=== PATIENT | female | born 1990 | race Caucasian/White ===

== ENCOUNTER 2018-06-02 10:06 | Inpatient (IN) | payer MEDICAID ==
[~2018-06-02 10:06] MED LIST: EPHEDrine SULFATE 50 MG/5 ML SYG
[2018-06-02] MEDS ORDERED: MISOPROSTOL 200 MCG TAB PR ×2 (10:30→18:30)
[2018-06-02] MEDS ORDERED: METHYLERGONOVINE 0.2 MG INJ IM ×2 (10:30→18:30)
[2018-06-02] MEDS ORDERED: CARBOPROST 250 MCG INJ IM ×2 (10:30→18:30)
[2018-06-02] MEDS ORDERED: CEFAZOLIN 2 GM/50 ML (PMX) 50 ML IVPB (10:30)
[2018-06-02] MEDS ORDERED: OXYTOCIN 30 UNITS/LR 500 ML IV ×3 (10:30→18:30)
[2018-06-02] MEDS: LACTATED RINGER'S 1,000 ML IV (11:12)
[2018-06-02 11:21] LABS: ADD MAN DIFF? NO
[2018-06-02 11:24] LABS: WHITE BLOOD COUNT 6.3 10^3/ul (4.8-10.8)
[2018-06-02 11:24] LABS: BASOPHILS % 0.5 % (0.0-2.0); EOSINOPHILS # 0.1 10^3/ul (0.0-0.5); EOSINOPHILS % 1.8 % (0.0-7.0); HEMATOCRIT 31.9 % (37.0-47.0); HEMOGLOBIN 9.9 g/dl (12.0-16.0); LYMPHOCYTES # 1.5 10^3/ul (0.8-2.9); LYMPHOCYTES % 23.5 % (15.0-51.0); MEAN CORPUSCULAR HEMOGLOBIN 23.5 pg (29.0-33.0); MEAN CORPUSCULAR VOLUME 75.8 fl (82.0-101.0); MEAN PLATELET VOLUME 10.5 fl (7.4-10.4); MONOCYTE # 0.4 10^3/ul (0.3-0.9); NEUTROPHIL # 4.2 10^3/ul (1.6-7.5); NEUTROPHILS % 66.7 % (39.0-77.0); PLATELET COUNT 248 10^3/UL (140-415); RED BLOOD COUNT 4.21 10^6/ul (4.20-5.40); RED CELL DISTRIBUTION WIDTH 16.1 % (11.5-14.5)
[2018-06-02 11:43] LABS: INR 0.91; PROTIME 12.4 Sec (11.9-14.9)
[2018-06-02 11:44] LABS: PARTIAL THROMBOPLASTIN TIME 29.7 Sec (23.0-35.0)
[2018-06-02 12:24] LABS: HEPATITIS B SURFACE ANTIGEN NEGATIVE (NEGATIVE)
[2018-06-02] MEDS ORDERED: ONDANSETRON 4 MG INJ (13:51)
[2018-06-02] MEDS ORDERED: morphine SULFATE/PF (10 MG/10 ML) INJ (13:51)
[2018-06-02] MEDS ORDERED: METOCLOPRAMIDE 10 MG INJ (13:51)
[2018-06-02] MEDS ORDERED: OXYTOCIN 10 UNIT INJ (13:51)
[2018-06-02] MEDS ORDERED: MIDAZOLAM 1 MG/ML 2 ML INJ ×2 (14:52→14:56)
[2018-06-02] MEDS: KETOROLAC 60 MG INJ IM (15:18)
[2018-06-02] MEDS ORDERED: DIPHENHYDRAMINE 50 MG INJ IV (16:00)
[2018-06-02] MEDS ORDERED: morphine 2 MG INJ IV ×2 (16:00)
[2018-06-02] MEDS ORDERED: NALOXONE (0.4 MG/ML) INJ IV (16:00)
[2018-06-02] MEDS ORDERED: EPHEDrine SULFATE 50 MG/5 ML SYG IV (16:00)
[2018-06-02] MEDS: morphine SULFATE/PF (10 MG/10 ML) INJ SPINAL (16:09)
[2018-06-02] MEDS: OXYTOCIN 30 UNITS/LR 500 ML IV ×2 (16:10→19:46)
[2018-06-02] MEDS: AZITHROMYCIN 500MG/NS (PMX) 250 ML IVPB (16:44)
[2018-06-02] MEDS: KETOROLAC 30 MG INJ IV (16:55)
[2018-06-02] MEDS ORDERED: LANOLIN HPA 1 PKT TOP (18:30)
[2018-06-02] MEDS ORDERED: NA PHOSPHATE/BIPHOS 133 ML ENEMA PR (18:30)
[2018-06-02 18:40] LABS: ADD MAN DIFF? NO
[2018-06-02 18:44] LABS: WHITE BLOOD COUNT 14.6 10^3/ul (4.8-10.8)
[2018-06-02 18:44] LABS: BASOPHILS % 0.2 % (0.0-2.0); EOSINOPHILS % 0.2 % (0.0-7.0); HEMATOCRIT 33.1 % (37.0-47.0); HEMOGLOBIN 10.5 g/dl (12.0-16.0); LYMPHOCYTES # 1.2 10^3/ul (0.8-2.9); LYMPHOCYTES % 8.1 % (15.0-51.0); MEAN CORPUSCULAR HEMOGLOBIN 24.1 pg (29.0-33.0); MEAN CORPUSCULAR HGB CONC 31.7 g/dl (32.0-37.0); MEAN CORPUSCULAR VOLUME 75.9 fl (82.0-101.0); MEAN PLATELET VOLUME 10.1 fl (7.4-10.4); MONOCYTE # 0.6 10^3/ul (0.3-0.9); MONOCYTES % 3.9 % (0.0-11.0); NEUTROPHIL # 12.7 10^3/ul (1.6-7.5); NEUTROPHILS % 87.1 % (39.0-77.0); PLATELET COUNT 215 10^3/UL (140-415); RED BLOOD COUNT 4.36 10^6/ul (4.20-5.40); RED CELL DISTRIBUTION WIDTH 16.4 % (11.5-14.5)
[2018-06-02 19:07] LABS: ALANINE AMINOTRANSFERASE 18 IU/L (13-69); ALBUMIN 3.6 g/dl (3.3-4.9); ALBUMIN/GLOBULIN RATIO 1.12; ALKALINE PHOSPHATASE 360 IU/L (42-121); ANION GAP 13 (5-13); ASPARTATE AMINO TRANSFERASE 32 IU/L (15-46); BILIRUBIN,INDIRECT 0.3 mg/dl (0-1.1); BILIRUBIN,TOTAL 0.3 mg/dl (0.2-1.3); BLOOD UREA NITROGEN 10 mg/dl (7-20); CALCIUM 9.1 mg/dl (8.4-10.2); CARBON DIOXIDE 22 mmol/L (21-31); CHLORIDE 101 mmol/L (97-110); CREATININE 0.86 mg/dl (0.44-1.00); Estimated GFR > 60 mL/min (>60); GLUCOSE 101 mg/dl (70-220); POTASSIUM 3.7 mmol/L (3.5-5.1); SODIUM 136 mmol/L (135-144); TOTAL PROTEIN 6.8 g/dl (6.1-8.1); URIC ACID 6.6 mg/dl (3.1-7.9)
[2018-06-02 19:18] LABS: INR 0.92; PROTIME 12.5 Sec (11.9-14.9)
[2018-06-02 19:19] LABS: PARTIAL THROMBOPLASTIN TIME 28.9 Sec (23.0-35.0)
[2018-06-02] MEDS: ONDANSETRON 4 MG INJ IV (19:45)
[2018-06-02 19:56] LABS: RAPID PLASMA REAGIN NONREACTIVE (NR)
[2018-06-02] MEDS: SENNA/DOCUSATE NA (8.6MG/50MG) TAB PO (21:00)
[2018-06-02] MEDS: IBUPROFEN 800 MG TAB PO (22:00)
[2018-06-02] MEDS: CEFAZOLIN 2 GM/50 ML (PMX) 50 ML IVPB (22:05)
[2018-06-03] MEDS: OXYTOCIN 30 UNITS/LR 500 ML IV ×5 (00:30→16:30)
[2018-06-03] MEDS: LACTATED RINGER'S 1,000 ML IV ×2 (00:34→09:03)
[2018-06-03] MEDS: KETOROLAC 30 MG INJ IV ×3 (01:59→13:34)
[2018-06-03] MEDS: CLINDAMYCIN 300 MG CAP PO ×5 (05:33→23:51)
[2018-06-03] MEDS: CEFAZOLIN 2 GM/50 ML (PMX) 50 ML IVPB ×2 (05:33→13:34)
[2018-06-03] MEDS: IBUPROFEN 800 MG TAB PO ×3 (06:00→22:01)
[2018-06-03 06:38] LABS: ADD UMIC YES; UR ASCORBIC ACID NEGATIVE (NEGATIVE); UR BILIRUBIN (Dip) NEGATIVE (NEGATIVE); UR BLOOD (Dip) 1+ mg/dL (NEGATIVE); UR CLARITY CLEAR (CLEAR); UR COLOR YELLOW (YELLOW); UR GLUCOSE (Dip) NEGATIVE (NEGATIVE); UR KETONES (Dip) 1+ mg/dL (NEGATIVE); UR LEUKOCYTE ESTERASE (Dip) TRACE Leu/ul (NEGATIVE); UR NITRITE (Dip) NEGATIVE (NEGATIVE); UR RBC 2 /HPF (0-5); UR SPECIFIC GRAVITY (Dip) 1.015 (1.003-1.030); UR TOTAL PROTEIN (Dip) NEGATIVE (NEGATIVE); UR UROBILINOGEN (Dip) NEGATIVE (NEGATIVE); UR WBC 7 /HPF (0-5)
[2018-06-03 06:41] LABS: ADD MAN DIFF? NO
[2018-06-03 06:53] LABS: BASOPHILS % 0.2 % (0.0-2.0); EOSINOPHILS # 0.1 10^3/ul (0.0-0.5); EOSINOPHILS % 1.1 % (0.0-7.0); HEMATOCRIT 24.9 % (37.0-47.0); HEMOGLOBIN 7.9 g/dl (12.0-16.0); LYMPHOCYTES # 1.3 10^3/ul (0.8-2.9); LYMPHOCYTES % 15.9 % (15.0-51.0); MEAN CORPUSCULAR HGB CONC 31.7 g/dl (32.0-37.0); MEAN CORPUSCULAR VOLUME 75.7 fl (82.0-101.0); MEAN PLATELET VOLUME 10.7 fl (7.4-10.4); MONOCYTE # 0.6 10^3/ul (0.3-0.9); MONOCYTES % 6.7 % (0.0-11.0); NEUTROPHIL # 6.4 10^3/ul (1.6-7.5); NEUTROPHILS % 75.6 % (39.0-77.0); PLATELET COUNT 178 10^3/UL (140-415); RED BLOOD COUNT 3.29 10^6/ul (4.20-5.40); RED CELL DISTRIBUTION WIDTH 16.1 % (11.5-14.5)
[2018-06-03 06:53] LABS: WHITE BLOOD COUNT 8.4 10^3/ul (4.8-10.8)
[2018-06-03] MEDS: SENNA/DOCUSATE NA (8.6MG/50MG) TAB PO ×2 (08:36→20:49)
[2018-06-03] MEDS: BISACODYL 10 MG SUPP PR (13:34)
[2018-06-03] MEDS: OXYCODONE/ACETAMINOPHEN (5/325) TAB PO (16:32)
[2018-06-03] MEDS: HYDROCODONE/APAP (5/325) TAB PO (20:49)
[2018-06-04] MEDS: HYDROCODONE/APAP (5/325) TAB PO (04:18)
[2018-06-04] MEDS: IBUPROFEN 800 MG TAB PO ×3 (05:37→22:01)
[2018-06-04] MEDS: CLINDAMYCIN 300 MG CAP PO ×4 (05:37→23:26)
[2018-06-04] MEDS: SENNA/DOCUSATE NA (8.6MG/50MG) TAB PO ×2 (12:04→22:01)
[2018-06-04] MEDS: OXYCODONE/ACETAMINOPHEN (5/325) TAB PO ×2 (12:05→19:48)
[2018-06-04] MEDS ORDERED: ACETAMINOPHEN 325 MG TAB PO (14:00)
[2018-06-05] MEDS: OXYCODONE/ACETAMINOPHEN (5/325) TAB PO (03:36)
[2018-06-05] MEDS: IBUPROFEN 800 MG TAB PO ×2 (05:58→13:40)
[2018-06-05] MEDS: CLINDAMYCIN 300 MG CAP PO ×2 (05:58→11:45)
[2018-06-05] MEDS: DIPHTH/TET/ACEL PERTUSS (ADULT) 0.5 ML VIAL IM* (08:05)
[2018-06-05] MEDS: MEASLES,MUMPS,RUBELLA VACCINE INJ SC* (08:05)
[2018-06-05] MEDS: SENNA/DOCUSATE NA (8.6MG/50MG) TAB PO (09:00)
== END 2018-06-05 15:50 | disposition home or self-care (01) | DRG 785 ==
LOC: L-D 10:06 → PP1 18:00
PROVIDERS: Obstetrics & Gynecology
PROC: 10D00Z1 Extraction of Products of Conception, Low, Open Approach (ICD-10-PCS; principal; 2018-06-02 12:30)
PROC: 0UL70ZZ Occlusion of Bilateral Fallopian Tubes, Open Approach (ICD-10-PCS; 2018-06-02 12:30)
DX: O30.003 Twin pregnancy, unspecified number of placenta and unspecified number of amniotic sacs, third trimester (principal); O34.211 Maternal care for low transverse scar from previous cesarean delivery; Z30.2 Encounter for sterilization; Z3A.37 37 weeks gestation of pregnancy; Z37.2 Twins, both liveborn
CPT/HCPCS: 80053; 81001; 84560; 85025; 85384; 85610; 85730; 86592; 86850; 86900; 86901; 87340; 88302; 88307; 99464